=== PATIENT | male | born 1950 | race Caucasian/White ===

== ENCOUNTER → 2017-03-07 | Outpatient (CLI) | payer MEDICARE ==
[~2017-03-07] MED LIST: AMLO5TAB2 PO; ATOR40TA16 PO; BACL20TA PO; CHLORHEXIDINE GLUCONATE 2 % 1 PACK (2 CLOTHS) TOPICAL PRN; CLON0.2T PO; GABA400C5 PO; GLIP10TA6 PO; HYDR25TA5 PO; INSULIN HUMAN REGULAR 1,000 UNITS/10 ML VIAL SQ PRN; LACTATED RINGER'S 1000 ML IV PRN; METF1000 PO; METOPROLOL TARTRATE 25 MG TAB PO PRN; POVIDONE IODINE 5% (ANTISEPSIS KIT) 4 APPLICATIONS EACH NARE PRN; PROPOFOL 200 MG/20 ML AMP IV ONE; SODIUM CHLORID 0.9% 500 ML IV PRN; TIZA4CAP3 PO
[2017-03-07 13:08] VITALS: BP 167/72; PULSE 96; RESP 16; TEMP 97.6; O2SAT 96
[2017-03-07 15:25] VITALS: BP 152/69; PULSE 94; RESP 17; TEMP 98.3; O2SAT 99
--- NOTE | 2017-03-08 10:00 | EKG ---
Date Performed: 03/07/2017 Time Performed: 12:38:24 PTAGE: 67 years EKG: Sinus rhythm WITH OCCASIONAL SUPRAVENTRICULAR PREMATURE COMPLEXES INCOMPLETE RIGHT BUNDLE BRANCH BLOCK MODERATE S T DEPRESSION ABNORMAL ECG NO PREVIOUS TRACING DOCTOR: Hema Couch Interpretating Date/Time 03/08/2017 09:58:34
--- NOTE | 2017-03-10 08:50 | MR ---
cc: TASHA COOPER M.D. DATE OF PROCEDURE 03/07/2017 PREOPERATIVE DIAGNOSES Rectal bleeding. Past history of polyps. POSTOPERATIVE DIAGNOSIS Large internal and external hemorrhoids. ANESTHESIA Monitored anesthesia care. SURGEON Dr. Cooper ESTIMATED BLOOD LOSS Minimal. OPERATIVE FINDINGS This patient was referred to me by Dr. Elías Pennington for previous polyps and rectal bleeding. 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 Ron in June of 2015 where he described a residual polyp in the rectum about 1 x 1.5 cm in size. He felt that he removed most of this lesion but felt that there was some left. The patient has had intermittent rectal bleeding and has agreed to colonoscopy. At colonoscopy the prep was only fair to poor with a lot of fluid and granular stool present but a fairly good look was obtained, especially of the rectum and no lesions were identified. He did have scattered diverticulosis. No polyps or other mucosal lesions were seen. I did reach what appeared to be the cecum. OPERATIVE TECHNIQUE The patient was placed on the table in the left lateral Position, given intravenous monitored anesthesia care and the colonoscope was introduced through the anal canal, taken to the rectum, the sigmoid colon, descending colon, transverse colon, ascending colon to the cecum. The scope had to be back-flushed multiple times to unblock it from the debris that was in the colon but a fairly good look was obtained around the colon. Certainly small lesions could have been missed but I do not think there are any large lesions present or any carcinomas present. The scope was eventually withdrawn, circumferentially looking at the mucosa, getting a fair look at the mucosa. He had large internal hemorrhoids in three quadrants. MD LINDA Suarez/GÉNESIS /3:16 PM /8:36 AM
== END ==
LOC: HSDC 12:08
PROVIDERS: ATTEND Colon & Rectal Surgery
DX: K62.5 Hemorrhage of anus and rectum (principal); Z86.010 Personal history of colon polyps; K64.4 Residual hemorrhoidal skin tags; K64.8 Other hemorrhoids; G82.20 Paraplegia, unspecified; K57.90 Diverticulosis of intestine, part unspecified, without perforation or abscess without bleeding; R94.31 Abnormal electrocardiogram [ECG] [EKG]
CPT/HCPCS: 93005